=== PATIENT | female | born 1925 | race Caucasian/White ===

== ENCOUNTER 2016-12-03 15:51 | Inpatient (IN) ==
[2016-12-03] MEDS ORDERED: SODIUM CHLORIDE 0.9% 1,000 ML IV STA (16:09)
[2016-12-03] MEDS ORDERED: cefTRIAXone 2,000 MG in SODIUM CHLORIDE 0.9% 100 ML IV ONE (16:22)
--- NOTE | 2016-12-03 16:34 | EKG Report ---
Stationary ECG Study [facility] ER Test Date: 12/03/2016 4:32:22 PM Pat Name: BRITTNY PRIETO Department: Room: Gender: F Class B Driver: : [id number] Requested by: Frederick Caruso Order Number: [id number] Reading MD: JOSÉ MIG[address] Intervals [place] Rate: 117 P: 999 KS: 0 QRS: -1 QRSD: 87 T: -37 QT: 266 QTc: 335 Interpretive Statements Atrial fibrillation WITH RAPID VENTRICULAR RESPONSE Electronically Signed On 12-04-16 16:50:16 [address]T by [address] [id number]
[2016-12-03 16:42] LABS: Basophils # 0.1 10*3/uL (0.0-0.2); Basophils % 0.2 % (0.0-0.8); Hematocrit 32.5 VOL% (35.7-47.0); Hemoglobin 10.5 GM/DL (12.0-16.0); Immature Granulocytes % 1.9 %; Immature Granulocytes Absolute 0.71 #; Lymphocytes # 1.5 10*3/uL (1.4-4.0); Lymphocytes % 4.1 % (21.3-54.2); Mean Corpuscular HGB Conc 32.3 GM/DL (32-36); Mean Corpuscular Hemoglobin 29 PG (27-34); Mean Corpuscular Volume 90.3 FL (87-102); Mean Platelet Volume 11.9 FL (9.6-12.0); Monocytes # 0.6 10*3/uL (0.11-0.8); Monocytes % 1.5 % (1.7-12.7); NRBC # 0.02 10*3/uL; Neutrophils # 35.1 10*3/uL (1.4-7.4); Neutrophils % 92.3 % (38.7-73.9); Platelet Count 257 T/CUMM (130-400)
[2016-12-03] MEDS ORDERED: cefTRIAXone 1,000 MG VIAL ONE (16:48)
[2016-12-03 16:55] LABS: INR 1.5; PT Patient Result 16.3 SECS; Partial Thromboplastin Time 28.7 SECS (0-40)
[2016-12-03 17:03] LABS: Apearance,Urine CLOUDY (Clear); Bacteria,Urine Moderate /HPF (Few); Bilirubin,Urine Negative (Negative); Blood, Urine Moderate mg/dL (Negative); Glucose,Urine (UA) Negative (Negative); Ketones,Urine 5 mg/dL (Negative); Nitrite,Urine Negative (Negative); Protein,Urine >=500 MG/DL; RBC,Urine 1361 /HPF (0-4); Squamous Epithelial Cell,Urine Few /HPF (0-10); Urine Color Amber (Yellow); Urine Specific Gravity 1.013 (1.001-1.035); Urine Urobilinogen < 2.0 EU/DL (0.2-1.0); WBC,Urine 1106 /HPF (0-6)
[2016-12-03 17:09] LABS: Band Neutrophils 2 % (0-10); Hypersegmented Neutrophil 1+; Lymphocytes 1 % (20-55); Ovalocytes Slight; Platelet Estimate Adequate; Poikilocytosis Slight; Segmented Neutrophils 96 % (50-85); Total Cells Counted 100
--- NOTE | 2016-12-03 17:12 | XRay Report ---
History: Altered mental status Date: 12/03/2016 Study: Chest x-ray AP portable Comparison exam: October 29, 2016 There is stable mild cardiomegaly. The mediastinal contour is unchanged in this patient status post prior median sternotomy. There is moderate aortic arch calcification. The pulmonary vasculature is not engorged. The exam was performed in shallow breath. There is no gross pleural effusion. There is some minor subsegmental atelectasis in the right midlung. Lungs are otherwise generally clear without change. There are some scattered emphysematous changes. There is osteopenia. Impression: No gross evidence of acute cardiopulmonary process compared to the previous study PROCEDURE INTERPRETED AT [facility] DEPARTMENT OF RADIOLOGY Final Report Signed by: Dr. Brittney Valverde
[2016-12-03 17:15] LABS: Albumin 1.7 G/DL (3.4-5.0); Bilirubin,Total 0.6 MG/DL (0.2-1.0); Calcium 10.3 MG/DL (8.5-10.1); Total Protein 5.8 G/DL (6.4-8.3)
[2016-12-03 17:16] LABS: Osmolality,Calculated 330.9 MOS/KG (273-304); Potassium 4.1 MMOL/L (3.5-5.1)
[2016-12-03 17:20] LABS: Troponin I Only 0.254 NG/ML (0.00-0.045)
[2016-12-03] MEDS ORDERED: ONDANSETRON 4 MG/2 ML VIAL IV PRN (17:28)
[2016-12-03] MEDS ORDERED: NALOXONE 0.4 MG/ML VIAL IV PRN (17:28)
[2016-12-03] MEDS ORDERED: ACETAMINOPHEN 325 MG TABLET PO PRN (17:28)
--- NOTE | 2016-12-03 17:28 | Emergency Department Note ---
Archie English Brittany, am scribing for, and in the presence of, Wes Kuhn MD 16:11. Bam English Doug C, MD, personally performed the services described in this documentation, ascribed by Christy Almanza in my presence, and it is both accurate and complete 727 . Arrival - Arrival Chief Complaint: Altered Mental Status Stated Complaint: altered loc ED Nursing Triage Note: Brought in by EMS c/o altered LOC and fever-onset this morning. Family reports temp of 105 today. Mode of Arrival: Stretcher Limitations: Altered Mental Status Source: Family, Old Records Reviewed, RN Notes Reviewed Time Seen by Provider: 12/03/16 15:58 - History of Present Illness HPI Narrative: Patient's brought from home today by family with high fever, decreased responsiveness and elevated blood sugar. Patient is on hospice. She has a history of bladder cancer and is not a candidate for surgical or chemotherapeutic treatment. She is not having any dyspnea according to the family. I was called by the hospice nurse because of her hyperglycemia. Patient did not have any short acting insulin at home. Finally elected running to the emergency room. She is still a DNR. She is unable to give any history. Onset (ago): hour(s) Consistency: constant Date of Last Menstrual Period: hysterectomy Allergies/Adverse Reactions: Allergies Allergy/AdvReac Type Severity Reaction Status Date / Time Anesthetics - Amide Type Allergy Severe ANAPHYLAXIS Verified 10/29/16 10:16 Anesthetics - Nan Type- Allergy Severe ANAPHYLAXIS Verified 10/29/16 10:16 Parabens [Anesthetics - Ann Type] codeine Allergy Severe HIVES Verified 10/29/16 10:16 Iodinated Contrast Media - Allergy Intermediate Vomiting Verified 10/29/16 10:16 Oral and Home Medications: Home Medications Medication Instructions Recorded Confirmed Type Folic Acid Tab 1 mg PO DAILY 04/29/16 10/29/16 History Insulin Glargine,Hum.rec.anlog 25 unit SUBCUT BEDTIME 04/29/16 10/29/16 History [Lantus SoloStar] Losartan [Cozaar] 50 mg PO DAILY 04/29/16 10/29/16 History Magnesium 250 mg PO DAILY 04/29/16 10/29/16 History Multivitamin (Centrum) [Centrum 1 tablet PO DAILY 04/29/16 10/29/16 History Tab] amLODIPine [Norvasc] 5 mg PO DAILY 04/29/16 10/29/16 History sitaGLIPtin [Januvia] 100 mg PO DAILY 04/29/16 10/29/16 History Skin Healing Oint (Aquaphor) 1 applic TOP DAILY #1 ointment 05/05/16 10/29/16 Rx [Aquaphor] Carvedilol [Coreg] 6.25 mg PO BID #60 tablet 07/05/16 10/29/16 Rx Psyllium Powder [Hydrocil Powder] 1 packet PO DAILY pack 07/05/16 10/29/16 Rx Ascorbic Acid [Vitamin C] 500 mg PO DAILY 07/27/16 10/29/16 History Gabapentin Cap/Tab [Neurontin 200 mg PO BEDTIME #30 capsule 08/16/16 10/29/16 Rx Cap/Tab] HYDROcodone/ACETAMIN 5-325 [[place] 1 tablet PO Q6H PRN 10/29/16 10/29/16 History 5-325] Acetaminophen Tab [Tylenol Tab] 650 mg PO Q6H PRN #0 tablet 11/02/16 Rx Fondaparinux [Arixtra] 2.5 mg SUBCUT Q24H syringe 11/02/16 Rx Lactulose Liquid [Chronulac] 30 gm PO DAILY PRN #0 11/02/16 Rx Magnesium Hydroxide Susp [Milk of 30 ml PO Q6H PRN #0 11/02/16 Rx Magnesia] Zaleplon [Sonata] 5 mg PO BEDTIME capsule 11/02/16 Rx Review of System - Review of System ROS unobtainable: due to mental status - Review of System Constitutional: Present: fever Medical,Surgical,& Family Hx - Medical History Cardio: History of: CHF, CAD, Hypertension, [place], Cardiovascular Problems Neurology: History of: TIA HEENT: History of: Eye Problem (GLASSES), Dental Problems (UPPER & LOWER DENTURES) Endocrine: History of: Diabetes Mellitus (IDDM), Diabetes Mellitus (NIDDM) Rheumatology: History of;: Rheumatoid Arthritis Respiratory: History of: Pneumonia (Can't remember when but has as a adult.) Genitourinary: History of: Kidney Stones, Recurring Urinary Tract Infections, Genitourinary Cancer (Patient has a history of bladder cancer) Gastrointestinal: History of: Hemorrhoids Musculoskeletal: History of: Back/Neck Problems (Had 2 slipped discs in back1991.), Musculoskeletal Problems (Had 2 slipped discs in .) No history of: Amputation Hematology: History of: Anemia (Take vitamin with iron in it- per daughter.) Other: History of: Skin Problems (Chronic venous stasis disease with ulcers), Miscellaneous Medical Problems - Surgical History Cardiac Surgeries: Sugical HX of: Cardiac Catheterization (STENT X1 in 2011), Cardiac Surgery (Has had 4 CABGs. Last one was in 1997.) Thoracic Surgeries: Patient denies;: Kidney (Renal Surgery), Lithotripsy, Nephrectomy, Lobectomy Neurologic Surgeries: Patient denies: Neurologic Surgery HEENT Surgeries: Surgical HX of: Eye Surgery (CATARACTS REMOVED IN 1996) Patient denies: Thyroid Surgery, Tonsilectomy & Adenoidectomy Abdominal Surgeries: Surgical HX of: Colonoscopy Reproductive Surgeries: Surgical HX of;: Hysterectomy (In 1966) Patient denies;: Cystoscopy, Genitourinary Surgery Orthopedic Surgeries: Surgical HX of;: Orthopedic Surgery (Left Hip Fx- Jul 2016 ) Patient denies;: Implanted Devices, Spinal Surgery, Total Hip Replacement, Total Knee Replacement - Family History Family History: Reports;: Family Cancer (BROTHER X2 (COLON)), Family Diabetes ( Mother, Sister, Son), Family Heart Disease (father and brothers), Family Hypertension (Siblings), Family Stroke (Sister) - Social History Smoking Status: Never smoker Frequency of Alcohol Use: None Type of Drug Use: None Exam Vital Signs: Vital Signs Temperature 102 F H 12/03/16 16:02 Pulse Rate 128 H 12/03/16 16:02 Respiratory Rate 32 H 12/03/16 16:02 Blood Pressure 124/75 12/03/16 16:02 O2 Sat by Pulse Oximetry 99 12/03/16 16:02 - General General appearance: lethargic (patient is minimally responsive to stimuli), obtunded - Head Head exam: Present: atraumatic, normocephalic, normal inspection - Eye Eye exam: Present: normal appearance, PERRL, EOMI - ENT ENT exam: Present: normal exam, mucous membranes dry. Absent: normal oropharynx - Neck Neck exam: Present: normal inspection, full ROM - Chest Chest inspection: Present: normal inspection - Respiratory Respiratory exam: Present: rhonchi (scattered rhonchi to both lung hernandez upon auscultation). Absent: normal lung sounds bilaterally - Cardiovascular Cardiovascular exam: Present: tachycardia, irregular rhythm, normal heart sounds. Absent: regular rate, normal rhythm - Abdominal Exam Abdominal exam: Present: soft, normal bowel sounds, diminished bowel sounds. Absent: distention, tenderness - Extremities Exam Extremities exam: Present: normal inspection - Back Exam Back exam: Present: normal inspection - Neurological Exam Neurological exam: Present: CN II-XII intact (Grossly intact). Absent: alert ( patient is minimally responsive to stimuli ), oriented X3 (unable to assess secondary to patient being minimally responsive to stimuli) - Skin Skin exam: Present: warm (febrile), dry, intact, normal color Course Course Narrative: Family requested admission with hydration and IV antibiotics and I think it with the circumstances is a reasonable request. They still want to keep her a DNR. I will make her observation patient. Results - Labs CBC & BMP: 12/03/16 16:32 12/03/16 16:32 Lab Results: I have reviewed the patients labs Labs: Laboratory Tests 12/03/16 16:32 WBC 38.0 H RBC 3.60 L Hgb 10.5 L Hct 32.5 L MCV 90.3 MCH 29 MCHC 32.3 RDW 16.0 Plt Count 257 MPV 11.9 Neut % (Auto) 92.3 H Lymph % (Auto) 4.1 L Martin % (Auto) 1.5 L Eos % (Auto) 0.0 Baso % (Auto) 0.2 Neut # (Auto) 35.1 H Lymph # (Auto) 1.5 Martin # (Auto) 0.6 Eos # (Auto) 0.0 Baso # (Auto) 0.1 Immature Gran % 1.9 Nucleated RBC % 0.1 Immature Gran # 0.71 Nucleated RBCs # 0.02 Laboratory Tests 12/03/16 16:32 INR 1.5 PT Patient/Control Mix 16.3 D Circ Anticoag PTT 28.7 Laboratory Tests 12/03/16 16:48 Urine Color Vianey Urine Appearance Cloudy Urine pH 8.0 Ur Specific Mccloud 1.013 Urine Protein >=500 Urine Glucose (UA) Negative Urine Ketones 5 Urine Blood Moderate Urine Nitrate Negative Urine Bilirubin Negative Urine Urobilinogen < 2.0 H Urine Leukocytes Moderate H Urine RBC 1361 Urine WBC 1106 Urine WBC Clumps Many Ur Squamous Epith Cells Few Urine Bacteria Moderate Laboratory Tests 12/03/16 12/03/16 16:32 16:32 Total Counted 100 Segmented Neutrophils 96 H Band Neutrophils 2 Lymphocytes 1 L Monocytes 1 L Hypersegmented Neuts 1+ Platelet Estimate Adequate Poikilocytosis Slight Ovalocytes Slight ESR Westergren Pending C-Reactive Protein 5.92 H Laboratory Tests 12/03/16 12/03/16 16:32 16:32 Lactic Acid 3.8 H C-Reactive Protein 5.92 H Laboratory Tests 12/03/16 16:32 Lactic Acid 3.8 H Laboratory Tests 12/03/16 16:32 Sodium 151 H Potassium 4.1 Chloride 117 H Carbon Dioxide 21 Anion Gap 17.1 H BUN 70 H Creatinine 1.60 H GFR Calculation 24 BUN/Creatinine Ratio 43.00 H Glucose 305 H Calculated Osmolality 330.9 H Calcium 10.3 H Total Bilirubin 0.60 AST 40 H ALT 15 Alkaline Phosphatase 209 H Troponin I 0.254 H Total Protein 5.8 L Albumin 1.7 L Globulin 4.1 H Albumin/Globulin Ratio 0.4 L - EKG EKG results: interpreted by ERMD - Impressions Atrial flutter with heart rate 116 bpm - Diagnostic Findings Procedure: Chest x-ray: report reviewed by me (No gross evidence of acute cardiopulmonary process compared to the previous study.) Disposition Clinical Impression: Sepsis secondary to UTI Case discussed with: patient's family Disposition: Still a Patient Condition: Guarded Time of Disposition: 17:27
[2016-12-03 17:47] LABS: Sedimentation Rate-Westergren 86 MM/HR (0-30)
[2016-12-03] MEDS ORDERED: MORPHINE 2 MG/1 ML SYRINGE IV STA (18:08)
[2016-12-03] MEDS ORDERED: MORPHINE 2 MG/1 ML SYRINGE ONE (18:11)
[2016-12-03] MEDS: SODIUM CHLORIDE 0.9% 1,000 ML IV SCH (18:20)
[2016-12-03] MEDS: DOCUSATE SODIUM 100 MG CAPSULE PO SCH (22:58)
[2016-12-04] MEDS: MORPHINE 2 MG/1 ML SYRINGE IV PRN ×4 (01:31→21:21)
[2016-12-04] MEDS: SODIUM CHLORIDE 0.9% 1,000 ML IV SCH (02:25)
[2016-12-04 06:25] LABS: Basophils # 0.1 10*3/uL (0.0-0.2); Basophils % 0.2 % (0.0-0.8); Hematocrit 31.3 VOL% (35.7-47.0); Hemoglobin 9.8 GM/DL (12.0-16.0); Immature Granulocytes % 2.2 %; Lymphocytes # 2.5 10*3/uL (1.4-4.0); Lymphocytes % 6.2 % (21.3-54.2); Mean Corpuscular HGB Conc 31.3 GM/DL (32-36); Mean Corpuscular Hemoglobin 29 PG (27-34); Mean Corpuscular Volume 93.7 FL (87-102); Mean Platelet Volume 11.9 FL (9.6-12.0); Monocytes # 1.3 10*3/uL (0.11-0.8); Monocytes % 3.1 % (1.7-12.7); Neutrophils # 36.1 10*3/uL (1.4-7.4); Neutrophils % 88.3 % (38.7-73.9); Red Blood Count 3.34 MC/CUMM (3.8-5.5); Red Cell Distribution Width 16.5 % (9.3-17.3)
[2016-12-04 06:28] LABS: Platelet Count 190 T/CUMM (130-400); White Blood Count 40.9 T/CUMM (4-12)
[2016-12-04 06:50] LABS: Calcium 10.2 MG/DL (8.5-10.1); Osmolality,Calculated 341.3 MOS/KG (273-304); Potassium 3.6 MMOL/L (3.5-5.1)
[2016-12-04] MEDS ORDERED: DEXTROSE 50% 25 GM/50 ML VIAL IV PRN (07:33)
[2016-12-04] MEDS ORDERED: GLUCAGON 1 MG VIAL IM PRN (07:33)
--- NOTE | 2016-12-04 07:33 | Family Practice History&Phys ---
Assessment and Plan (1) Sepsis secondary to UTI Status: Acute Assessment and plan: 12/04/2016: Will add vancomycin to her present IV antibiotics. Her prognosis is grim. Current Visit: Yes History of Present Illness Chief complaint: Altered mental status History of present illness: Ms. Enriquez is a 89 year old female Patient is a 89-year-old white female brought the emergency room yesterday for with altered mental status and increased fever. Patient is on hospice for multiple medical issues including inoperable bladder cancer. Patient's temperature was 105 at home and family elected to bring her to the emergency room. She certainly appear dehydrated and has a urinary tract infection with marked leukocytosis on her CBC. I discussed the critical nature of her illness and family requested she be admitted for IV fluids and antibiotics. Patient does not appear to be uncomfortable at present. She apparently had a good night according to family members. Home Medications Medication Instructions Recorded Confirmed Type Folic Acid Tab 1 mg PO DAILY 04/29/16 12/03/16 History Insulin Glargine,Hum.rec.anlog 25 unit SUBCUT BEDTIME 04/29/16 12/03/16 History [Lantus SoloStar] Losartan [Cozaar] 50 mg PO DAILY 04/29/16 12/03/16 History Magnesium 250 mg PO DAILY 04/29/16 12/03/16 History Multivitamin (Centrum) [Centrum 1 tablet PO DAILY 04/29/16 12/03/16 History Tab] amLODIPine [Norvasc] 5 mg PO DAILY 04/29/16 12/03/16 History sitaGLIPtin [Januvia] 100 mg PO DAILY 04/29/16 12/03/16 History Psyllium Powder [Hydrocil Powder] 1 packet PO DAILY pack 07/05/16 12/03/16 Rx Ascorbic Acid [Vitamin C] 500 mg PO DAILY 07/27/16 12/03/16 History Gabapentin Cap/Tab [Neurontin 200 mg PO BEDTIME #30 capsule 08/16/16 12/03/16 Rx Cap/Tab] Acetaminophen Tab [Tylenol Tab] 650 mg PO Q6H PRN #0 tablet 11/02/16 12/03/16 Rx Magnesium Hydroxide Susp [Milk of 30 ml PO Q6H PRN #0 11/02/16 12/03/16 Rx Magnesia] Zaleplon [Sonata] 5 mg PO BEDTIME capsule 11/02/16 12/03/16 Rx Carvedilol [Coreg] 3.125 mg PO BID 12/03/16 12/03/16 History Hydrocodone/Acetaminophen [Yeso 1 each PO Q6H PRN 12/03/16 12/03/16 History 7.5-325 Tablet] Lactulose [Kristalose] 30 gm PO Q24H PRN 12/03/16 12/03/16 History Allergies Allergy/AdvReac Type Severity Reaction Status Date / Time Anesthetics - Amide Type Allergy Severe ANAPHYLAXIS Verified 10/29/16 10:16 Anesthetics - Ann Type- Allergy Severe ANAPHYLAXIS Verified 10/29/16 10:16 Parabens [Anesthetics - Ann Type] codeine Allergy Severe HIVES Verified 10/29/16 10:16 Iodinated Contrast Media - Allergy Intermediate Vomiting Verified 10/29/16 10:16 Oral and ROS unobtainable: due to mental status Medical,Surgical,& Family Hx - Medical History Cardio: History of: CHF, CAD, Hypertension, [place], Cardiovascular Problems Neurology: History of: TIA HEENT: History of: Eye Problem (GLASSES), Dental Problems (UPPER & LOWER DENTURES) Endocrine: History of: Diabetes Mellitus (IDDM), Diabetes Mellitus (NIDDM) Rheumatology: History of;: Rheumatoid Arthritis Respiratory: History of: Pneumonia (Can't remember when but has as a adult.) Genitourinary: History of: Kidney Stones, Recurring Urinary Tract Infections, Genitourinary Cancer (Patient has a history of bladder cancer) Gastrointestinal: History of: Hemorrhoids Musculoskeletal: History of: Back/Neck Problems (Had 2 slipped discs in back- 1991.), Musculoskeletal Problems (Had 2 slipped discs in back-1991.) No history of: Amputation Hematology: History of: Anemia (Take vitamin with iron in it- per daughter.) Other: History of: Cancer (bladder cancer), Skin Problems (Chronic venous stasis disease with ulcers), Miscellaneous Medical Problems - Surgical History Cardiac Surgeries: Sugical HX of: Cardiac Catheterization (STENT X1 in 2011), Cardiac Surgery (Has had 4 CABGs. Last one was in 1997.) Thoracic Surgeries: Patient denies;: Kidney (Renal Surgery), Lithotripsy, Nephrectomy, Lobectomy Neurologic Surgeries: Patient denies: Neurologic Surgery HEENT Surgeries: Surgical HX of: Eye Surgery (CATARACTS REMOVED IN 1996) Patient denies: Thyroid Surgery, Tonsilectomy & Adenoidectomy Abdominal Surgeries: Surgical HX of: Colonoscopy Reproductive Surgeries: Surgical HX of;: Hysterectomy (In 1966) Patient denies;: Cystoscopy, Genitourinary Surgery Orthopedic Surgeries: Surgical HX of;: Orthopedic Surgery (Left Hip Fx- Jul 2016 ) Patient denies;: Implanted Devices, Spinal Surgery, Total Hip Replacement, Total Knee Replacement - Family History Family History: Reports;: Family Cancer (BROTHER X2 (COLON)), Family Diabetes ( Mother, Sister, Son), Family Heart Disease (father and brothers), Family Hypertension (Siblings), Family Stroke (Sister) - Social History Smoking Status: Never smoker Frequency of Alcohol Use: None Type of Drug Use: None Exam - Constitutional Vitals: Period Temp Pulse Resp BP Sys/Ramirez Pulse Ox Last 24 Hr 97.7 F-102 F 71-128 18-32 109-136/50-75 95-100 Exam: General: Objective patient is a well-developed white female who has no verbal response and does not follow commands. This is unchanged from yesterday HEENT: Pupils equal and reactive to light. Patent nares and airway Neck: No meningismus, adenopathy, thyromegaly. There are no auscultated carotid bruits. Cardiovascular: Patient has rapid irregular rhythm with 3/6 systolic Murmur left base Chest: Clear to auscultation without rales rhonchi wheezes. Abdomen: Soft nontender to palpation No masses, rebound, guarding or tenderness. Neuro: Patient is somnolent and responds to painful stimuli only. Dermatologic: No evidence of abnormal lesions or masses. Musculoskeletal: There is no joint swelling or tenderness or deformity. Results - Labs CBC & BMP: 12/04/16 06:12 12/04/16 06:12 Lab Results: I have reviewed the past 24 hour labs
[2016-12-04 07:38] LABS: Band Neutrophils 2 % (0-10); Hypochromasia 1+; Lymphocytes 3 % (20-55); Segmented Neutrophils 94 % (50-85); Total Cells Counted 100
[2016-12-04 07:39] LABS: Microcytosis 1+; Ovalocytes Slight
[2016-12-04] MEDS ORDERED: VANCOMYCIN INJ 750 MG in SODIUM CHLORIDE 0.9% 250 ML IV PRN (08:03)
[2016-12-04] MEDS: ACETAMINOPHEN 650 MG SUPP RECTAL PRN (08:10)
[2016-12-04] MEDS: SODIUM CHLORIDE 0.45% 1,000 ML IV SCH ×2 (08:11→18:12)
[2016-12-04] MEDS: DOCUSATE SODIUM 100 MG CAPSULE PO SCH ×2 (08:57→23:57)
[2016-12-04] MEDS ORDERED: VANCOMYCIN INJ 1,250 MG in SODIUM CHLORIDE 0.9% 250 ML IV ONE (09:00)
[2016-12-04] MEDS: PANTOPRAZOLE 40 MG TABLET PO SCH (10:40)
[2016-12-04] MEDS: INSULIN LISPRO 100 UNIT/ML SUBCUT SCH ×2 (12:34→18:13)
[2016-12-04] MEDS: cefTRIAXone 1,000 MG in SODIUM CHLORIDE 0.9% 100 ML IV SCH (21:19)
[2016-12-04] MEDS: DESITIN 4OZ/NYSTATIN 15 GRAM MIXTURE PASTE TOP SCH (22:00)
[2016-12-05] MEDS: SODIUM CHLORIDE 0.45% 1,000 ML IV SCH ×4 (01:00→22:26)
[2016-12-05] MEDS: MORPHINE 2 MG/1 ML SYRINGE IV PRN ×4 (03:36→19:40)
[2016-12-05] MEDS: INSULIN LISPRO 100 UNIT/ML SUBCUT SCH ×3 (04:49→19:10)
--- NOTE | 2016-12-05 08:20 | Family Practice Progress Note ---
Family Practice - PN: Subj Interval history: Patient is a little bit more alert this morning she has been. Patient certainly not talking this morning. I note that her blood and urine cultures were both negative which is little surprising to me. We will continue present antibiotic therapy and IV fluids. Exam (Progress Note) - Constitutional Vitals: Period Temp Pulse Resp BP Sys/Ramirez Pulse Ox Last 24 Hr 97.9 F-99.9 F 81-87 18-20 112-132/42-73 99-100 Exam: Objective a well-developed white female who responds to painful stimuli only. Cardiovascular: Heart rates regular with 3/6 systolic ejection murmur left base. Respiratory: Patient has scattered rhonchi bilaterally Abdomen: Abdomen soft and nontender to palpation. Results - Labs CBC & BMP: 12/04/16 06:12 12/04/16 06:12 Lab Results: I have reviewed the past 24 hour labs Assessment and Plan (1) Sepsis secondary to UTI Status: Acute Assessment and plan: 12/04/2016: Will add vancomycin to her present IV antibiotics. Her prognosis is grim. 12/05/2016: Patient slightly improved with IV fluids. We will keep her in another day and probably to go back home with hospice tomorrow Current Visit: Yes
[2016-12-05] MEDS: DOCUSATE SODIUM 100 MG CAPSULE PO SCH ×2 (11:58→21:07)
[2016-12-05] MEDS: PANTOPRAZOLE 40 MG TABLET PO SCH (11:58)
[2016-12-05] MEDS: DESITIN 4OZ/NYSTATIN 15 GRAM MIXTURE PASTE TOP SCH ×2 (12:20→22:26)
[2016-12-05] MEDS ORDERED: VANCOMYCIN INJ 750 MG in SODIUM CHLORIDE 0.9% 250 ML IV ONE (16:00)
[2016-12-05] MEDS ORDERED: THIAMINE INJ 100 MG, FOLIC ACID INJ 1 MG, MULTIVITAMIN INJ 10 ML in SODIUM CHLORIDE 0.4... IV SCH (21:00)
[2016-12-05] MEDS: cefTRIAXone 1,000 MG in SODIUM CHLORIDE 0.9% 100 ML IV SCH (21:09)
[2016-12-06] MEDS: INSULIN LISPRO 100 UNIT/ML SUBCUT SCH ×4 (03:03→18:24)
[2016-12-06] MEDS: MORPHINE 2 MG/1 ML SYRINGE IV PRN ×5 (03:27→22:32)
[2016-12-06] MEDS: ACETAMINOPHEN 650 MG SUPP RECTAL PRN (06:29)
[2016-12-06 06:41] LABS: Calcium 9.2 MG/DL (8.5-10.1); Osmolality,Calculated 325.4 MOS/KG (273-304)
--- NOTE | 2016-12-06 07:46 | Family Practice Progress Note ---
Family Practice - PN: Subj Interval history: Patient is little changed from yesterday. Family noticed that she is coughing a little bit now. She has probably had enough IV fluids and I will reduce her IV fluid rate. The family is dealing with the idea of having a feeding tube inserted. I told him if anything this may prolong her misery but it is certainly up to them to make that decision. Mrs. Enriquez is obviously not able to provide any input. Exam (Progress Note) - Constitutional Vitals: Period Temp Pulse Resp BP Sys/Ramirez Pulse Ox Last 24 Hr 98.1 F-100.5 F 59-94 18-24 100-131/50-73 94-100 Exam: Objective a well-developed white female who responds to painful stimuli only. She only grimaces. Cardiovascular: Heart rates regular with 3/6 systolic ejection murmur left base. Respiratory: Patient has scattered rhonchi bilaterally Abdomen: Abdomen soft and nontender to palpation. Results - Labs CBC & BMP: 12/04/16 06:12 12/06/16 05:25 Lab Results: I have reviewed the past 24 hour labs Assessment and Plan (1) Sepsis secondary to UTI Status: Acute Assessment and plan: 12/04/2016: Will add vancomycin to her present IV antibiotics. Her prognosis is grim. 12/05/2016: Patient slightly improved with IV fluids. We will keep her in another day and probably to go back home with hospice tomorrow 12/06/2016: Family now is trying to decide whether or not they want her to have a feeding tube. Current Visit: Yes
--- NOTE | 2016-12-06 11:00 | Physician Query Form ---
CLICK EDIT DOCUMENT TO SELECT QUERY ANSWER --> OK --> SIGN Brandie Russell RN Clinical Grain[employer] Machine W) [phone] (f) [phone] [email or web address] PROVIDERS: Make your selection(s) from the choices in EACH section by typing an "x" and enter comments in the comment section. Please use your independent medical judgment in providing your response. This request does not imply that any particular answer is desired or expected. CLINICAL INDICATORS: (Providers should not edit this section) Based on documentation of "Acute sepsis secondary to UTI" "has no verbal response and does not follow commands" "lethargic pt is minimally responsive to stimuli" "responds to painful stimuli only. she grimaces" "little bit more alert this morning" Treated with NS bolus and 1/2NS infusion, IV Rocephin, and IV Vancomycin. ACUITY: (x ) Acute ( ) Acute on Chronic ( ) Chronic ( ) Clinically unable to determine NATURE: (x ) Delirium due to general medical condition ( ) Dementia (x ) Encephalopathy ( ) Unconscious ( ) Transient level of awareness ( ) Comatose ( ) Locked-in State ( ) Persistent Vegetative State ( ) Other, please specify: ( ) Clinically unable to determine Please indicate the underlying cause of the altered mental status (CHECK ALL THAT APPLY): (x ) Baseline dementia ( ) Alzheimer's disease ( ) Parkinson's disease ( ) Lewy body dementia ( ) Acute stroke ( ) Late effect of stroke ( ) Reactive (from emotional stress, psychological trauma) ( ) Due to narcotics/other drugs ( ) Post procedural delirium ( ) Transient ischemic attack ( ) Generalized cerebral edema ( ) Normal pressure hydrocephalus ( ) Psychiatric illness ( ) Other, please specify: ( ) Clinically unable to determine Please indicate if there is an infection, sepsis, dehydration or specific organ failure that is causing the dementia. Be specific with clarifying the relationship between that process and the mental status change. COMMENTS: PLEASE ALSO DOCUMENT RESPONSE IN PROGRESS NOTES AND/OR DISCHARGE SUMMARY Use of terms such as suspected, likely, or probable (associated with a specific diagnosis that is being evaluated, monitored, or treated as if it exists) are acceptable and can be restated in the discharge summary if not ruled out. MTDD
--- NOTE | 2016-12-06 11:04 | Physician Query Form ---
CLICK EDIT DOCUMENT TO SELECT QUERY ANSWER --> OK --> SIGN Brandie Russell RN Clinical Enrollment Eligibility Representative W) [phone] (f) [phone] [email or web address] PROVIDERS: Make your selection(s) from the choices in EACH section by typing an "x" and enter comments in the comment section. Please use your independent medical judgment in providing your response. This request does not imply that any particular answer is desired or expected. CLINICAL INDICATORS: (Providers should not edit this section) Based on documentation of Creatinine from 1.6 to 0.7. GFR from 24 to 64. Treated with NS bolus followed by infusion. Monitored with serial lab checks. Clarify which of the following most accurately represents the patient's renal status: (x ) Acute kidney injury (non-traumatic) ( ) Acute renal failure ( ) Acute renal failure with underlying Chronic Kidney Disease (CKD) - please provide stage below ( ) Acute renal failure with pathological renal lesion ( ) Acute renal failure with necrosis ( ) tubular ( ) medullary ( ) cortical ( ) CKD - please provide stage below ( ) End Stage Renal Disease ( ) Acute interstitial nephritis ( ) Hepatorenal syndrome ( ) Other, please specify: ( ) Clinically unable to determine Chronic Kidney Disease Stages Source: National Kidney Disease Foundation ( ) Stage I (eGFR > or = 90) ( ) Stage II (eGFR 60 - 89) (x ) Stage III (eGFR 30 - 59) ( ) Stage IV (eGFR 15 - 29) ( ) Stage V (eGFR < 15 or dialysis) COMMENTS: PLEASE ALSO DOCUMENT RESPONSE IN PROGRESS NOTES AND/OR DISCHARGE SUMMARY Use of terms such as suspected, likely, or probable (associated with a specific diagnosis that is being evaluated, monitored, or treated as if it exists) are acceptable and can be restated in the discharge summary if not ruled out. MTDD
[2016-12-06] MEDS: DOCUSATE SODIUM 100 MG CAPSULE PO SCH (13:32)
[2016-12-06] MEDS: DESITIN 4OZ/NYSTATIN 15 GRAM MIXTURE PASTE TOP SCH (13:34)
[2016-12-06] MEDS: PANTOPRAZOLE 40 MG TABLET PO SCH (13:34)
[2016-12-06] MEDS: SODIUM CHLORIDE 0.9% 1,000 ML IV SCH (18:22)
[2016-12-06] MEDS: [UNRECOGNIZED DRUG - OTHER] IV SCH ×3 (18:26→23:43)
[2016-12-06] MEDS: MULTIVITAMIN IV SCH ×3 (18:26→23:43)
[2016-12-06] MEDS: THIAMINE IV SCH ×3 (18:26→23:43)
[2016-12-06] MEDS: cefTRIAXone 1,000 MG in SODIUM CHLORIDE 0.9% 100 ML IV SCH (22:38)
[2016-12-06] MEDS: VANCOMYCIN INJ 750 MG in SODIUM CHLORIDE 0.9% 250 ML IV SCH (23:30)
[2016-12-07] MEDS: ACETAMINOPHEN 650 MG SUPP RECTAL PRN ×4 (01:17→22:30)
[2016-12-07] MEDS: DESITIN 4OZ/NYSTATIN 15 GRAM MIXTURE PASTE TOP SCH ×3 (01:18→22:03)
[2016-12-07] MEDS: DOCUSATE SODIUM 100 MG CAPSULE PO SCH ×3 (01:18→20:30)
[2016-12-07] MEDS: INSULIN LISPRO 100 UNIT/ML SUBCUT SCH ×5 (01:19→20:30)
--- NOTE | 2016-12-07 07:33 | Family Practice Progress Note ---
Family Practice - PN: Subj Interval history: Patient had a fitful night last night. Her urine cultures positive for enterococcus which was sensitive to penicillin and vancomycin. She is presently on ceftriaxone and vancomycin I will continue those. Family decided against a feeding tube and they understand that she is terminal. I told him the need to consider taking her back home with hospice which apparently was her wish. They will discuss this amongst themselves. Exam (Progress Note) - Constitutional Vitals: Period Temp Pulse Resp BP Sys/Ramirez Pulse Ox Last 24 Hr 99.5 F-102.8 F 98-108 16-22 126-152/54-86 90-97 Exam: Objective a well-developed white female who has no response to painful or verbal stimuli. Cardiovascular: Heart rates regular with 3/6 systolic ejection murmur left base. Respiratory: Patient has scattered rhonchi bilaterally Abdomen: Abdomen soft and nontender to palpation. Results - Labs CBC & BMP: 12/04/16 06:12 12/06/16 05:25 Lab Results: I have reviewed the past 24 hour labs Assessment and Plan (1) Sepsis secondary to UTI Status: Acute Assessment and plan: 12/04/2016: Will add vancomycin to her present IV antibiotics. Her prognosis is grim. 12/05/2016: Patient slightly improved with IV fluids. We will keep her in another day and probably to go back home with hospice tomorrow 12/06/2016: Family now is trying to decide whether or not they want her to have a feeding tube. 12/07/2016: Patient has enterococcus UTI. The family has decided against tube feedings and they understand that she is terminal. Current Visit: Yes
[2016-12-07] MEDS: PANTOPRAZOLE 40 MG TABLET PO SCH (10:15)
[2016-12-07] MEDS: [UNRECOGNIZED DRUG - OTHER] IV SCH ×2 (10:16→23:21)
[2016-12-07] MEDS: THIAMINE IV SCH ×2 (10:16→23:21)
[2016-12-07] MEDS: MULTIVITAMIN IV SCH ×2 (10:16→23:21)
[2016-12-07] MEDS: cefTRIAXone 1,000 MG in SODIUM CHLORIDE 0.9% 100 ML IV SCH (20:37)
[2016-12-07] MEDS: MORPHINE 2 MG/1 ML SYRINGE IV PRN (20:37)
[2016-12-07] MEDS: VANCOMYCIN INJ 750 MG in SODIUM CHLORIDE 0.9% 250 ML IV SCH (22:04)
[2016-12-08] MEDS: INSULIN LISPRO 100 UNIT/ML SUBCUT SCH ×4 (01:20→17:14)
[2016-12-08] MEDS: MORPHINE 2 MG/1 ML SYRINGE IV PRN (01:21)
[2016-12-08] MEDS: ACETAMINOPHEN 650 MG SUPP RECTAL PRN ×2 (01:31→05:12)
--- NOTE | 2016-12-08 07:16 | Family Practice Progress Note ---
Family Practice - PN: Subj Interval history: Patient had a decent night according to family. They do not want her to go home with hospice at this point. She continues to be unresponsive. I do not think she can survive much longer in her present state. Exam (Progress Note) - Constitutional Vitals: Period Temp Pulse Resp BP Sys/Ramirez Pulse Ox Last 24 Hr 96.8 F-102.5 F 83-111 18-25 126-145/49-67 95-98 Exam: Objective a well-developed white female who has no response to painful or verbal stimuli. Cardiovascular: Heart rates regular with 3/6 systolic ejection murmur left base. Respiratory: Patient has scattered rhonchi bilaterally Abdomen: Abdomen soft and nontender to palpation. Results - Labs CBC & BMP: 12/04/16 06:12 12/06/16 05:25 Lab Results: I have reviewed the past 24 hour labs Assessment and Plan (1) Sepsis secondary to UTI Status: Acute Assessment and plan: 12/04/2016: Will add vancomycin to her present IV antibiotics. Her prognosis is grim. 12/05/2016: Patient slightly improved with IV fluids. We will keep her in another day and probably to go back home with hospice tomorrow 12/06/2016: Family now is trying to decide whether or not they want her to have a feeding tube. 12/07/2016: Patient has enterococcus UTI. The family has decided against tube feedings and they understand that she is terminal. 12/08/2016: Patient continues to wither, I do not think she will survive much longer. Current Visit: Yes
[2016-12-08] MEDS: MULTIVITAMIN IV SCH ×4 (07:19→22:17)
[2016-12-08] MEDS: [UNRECOGNIZED DRUG - OTHER] IV SCH ×4 (07:19→22:17)
[2016-12-08] MEDS: THIAMINE IV SCH ×4 (07:19→22:17)
[2016-12-08] MEDS: SODIUM CHLORIDE 0.45% 1,000 ML IV SCH (07:21)
[2016-12-08] MEDS: DOCUSATE SODIUM 100 MG CAPSULE PO SCH ×2 (08:09→20:47)
[2016-12-08] MEDS: DESITIN 4OZ/NYSTATIN 15 GRAM MIXTURE PASTE TOP SCH ×2 (08:09→20:47)
[2016-12-08] MEDS: PANTOPRAZOLE 40 MG TABLET PO SCH (08:09)
[2016-12-08] MEDS: cefTRIAXone 1,000 MG in SODIUM CHLORIDE 0.9% 100 ML IV SCH (20:47)
[2016-12-08] MEDS: VANCOMYCIN INJ 750 MG in SODIUM CHLORIDE 0.9% 250 ML IV SCH (21:35)
[2016-12-09] MEDS: INSULIN LISPRO 100 UNIT/ML SUBCUT SCH ×4 (00:56→19:03)
[2016-12-09] MEDS: ACETAMINOPHEN 650 MG SUPP RECTAL PRN ×3 (00:57→17:09)
--- NOTE | 2016-12-09 05:15 | Family Practice Progress Note ---
Family Practice - PN: Subj Interval history: Patient had an uneventful night according to her daughter. She still not responding to them or myself. She still running some fever. The family wants comfort measures only at this time and I certainly agreeable to that. Exam (Progress Note) - Constitutional Vitals: Period Temp Pulse Resp BP Sys/Ramirez Pulse Ox Last 24 Hr 97.3 F-101.4 F 63-98 18-22 104-134/40-68 95-98 Exam: Objective a well-developed white female who has no response to painful or verbal stimuli. Cardiovascular: Heart rates regular with 3/6 systolic ejection murmur left base. Respiratory: Patient has scattered rhonchi bilaterally Abdomen: Abdomen soft and nontender to palpation. Results - Labs CBC & BMP: 12/04/16 06:12 12/06/16 05:25 Assessment and Plan (1) Sepsis secondary to UTI Status: Acute Assessment and plan: 12/04/2016: Will add vancomycin to her present IV antibiotics. Her prognosis is grim. 12/05/2016: Patient slightly improved with IV fluids. We will keep her in another day and probably to go back home with hospice tomorrow 12/06/2016: Family now is trying to decide whether or not they want her to have a feeding tube. 12/07/2016: Patient has enterococcus UTI. The family has decided against tube feedings and they understand that she is terminal. 12/08/2016: Patient continues to wither, I do not think she will survive much longer. 12/09/2016: Patient continues to weaken. I do not think she will make it through the weekend. Current Visit: Yes
[2016-12-09 06:36] LABS: Calcium 9.1 MG/DL (8.5-10.1)
[2016-12-09 06:45] LABS: Potassium 2.3 MMOL/L (3.5-5.1)
[2016-12-09] MEDS: THIAMINE IV SCH (08:58)
[2016-12-09] MEDS: [UNRECOGNIZED DRUG - OTHER] IV SCH (08:58)
[2016-12-09] MEDS: PANTOPRAZOLE 40 MG TABLET PO SCH (08:58)
[2016-12-09] MEDS: DOCUSATE SODIUM 100 MG CAPSULE PO SCH ×2 (08:58→21:18)
[2016-12-09] MEDS: MULTIVITAMIN IV SCH (08:58)
[2016-12-09] MEDS: DESITIN 4OZ/NYSTATIN 15 GRAM MIXTURE PASTE TOP SCH ×2 (08:59→20:32)
[2016-12-09] MEDS: SODIUM CHLOR 0.45% KCL 20 MEQ 20 MEQ/1,000 ML BAG IV SCH ×3 (11:45→23:20)
[2016-12-09] MEDS: THIAMINE INJ 100 MG, FOLIC ACID INJ 1 MG, MULTIVITAMIN INJ 10 ML in SODIUM CHLORIDE 0.4... IV SCH ×2 (20:21→22:00)
[2016-12-09] MEDS: cefTRIAXone 1,000 MG in SODIUM CHLORIDE 0.9% 100 ML IV SCH (20:26)
[2016-12-09] MEDS: VANCOMYCIN INJ 750 MG in SODIUM CHLORIDE 0.9% 250 ML IV SCH (21:21)
[2016-12-10] MEDS: INSULIN LISPRO 100 UNIT/ML SUBCUT SCH ×4 (03:51→18:01)
[2016-12-10] MEDS: SODIUM CHLOR 0.45% KCL 20 MEQ 20 MEQ/1,000 ML BAG IV SCH ×4 (06:24→20:17)
[2016-12-10] MEDS: DESITIN 4OZ/NYSTATIN 15 GRAM MIXTURE PASTE TOP SCH ×2 (10:05→22:05)
[2016-12-10] MEDS: PANTOPRAZOLE 40 MG TABLET PO SCH (10:05)
[2016-12-10] MEDS: DOCUSATE SODIUM 100 MG CAPSULE PO SCH ×2 (10:05→21:28)
--- NOTE | 2016-12-10 10:44 | Internal Med Progress Note ---
Assessment and Plan (1) Sepsis secondary to UTI Status: Acute Assessment and plan: 89-year-old female * Sepsis secondary to UTI. She is on antibiotics. Low-grade fever * Family understands that she is terminal. * Comfort measures Current Visit: Yes (2) HTN (hypertension) Status: Acute Current Visit: No (3) CAD (coronary artery disease) of artery bypass graft Status: Chronic Current Visit: No Qualifiers: [place] vs. transplanted heart: [place] heart Associated angina: without angina Qualified Code(s): I25.810 - Atherosclerosis of coronary artery bypass graft(s) without angina pectoris (4) Type 2 diabetes mellitus Status: Chronic Current Visit: No Qualifiers: Diabetes mellitus complication status: with neurologic complications Diabetes mellitus complication detail: with polyneuropathy Diabetes mellitus termite technician insulin use: without nursing home use Qualified Code(s): E11.42 - Type 2 diabetes mellitus with diabetic polyneuropathy Internal Medicine - PN: Subj Interval history: Patient's chart reviewed. She is unresponsive. Her daughter is present at bedside. Exam (Progress Note) - Constitutional Vitals: Period Temp Pulse Resp BP Sys/Ramirez Pulse Ox Last 24 Hr 99.0 F-101.5 F 89-102 16-24 94-157/42-68 87-96 Exam: Examination: GENERAL: Patient is unresponsive to painful or verbal stimuli HEENT: Mucous membranes are dry CVS: Regular rate and rhythm. S1 and S2 are normal. Systolic ejection murmur at left lower sternal RESPIRATORY: Bilateral rhonchi and few rales ABDOMEN: Soft and nontender. EXT: No edema. Peripheral pulses are present. INFORMAL WAITER/WAITRESS: Unresponsive Results - Labs CBC & BMP: 12/04/16 06:12 12/09/16 05:35 Lab Results: I have reviewed the past 24 hour labs
[2016-12-10] MEDS: cefTRIAXone 1,000 MG in SODIUM CHLORIDE 0.9% 100 ML IV SCH (22:03)
[2016-12-10] MEDS: VANCOMYCIN INJ 750 MG in SODIUM CHLORIDE 0.9% 250 ML IV SCH (23:31)
[2016-12-10] MEDS: THIAMINE INJ 100 MG, FOLIC ACID INJ 1 MG, MULTIVITAMIN INJ 10 ML in SODIUM CHLORIDE 0.4... IV SCH (23:35)
[2016-12-11] MEDS: ACETAMINOPHEN 650 MG SUPP RECTAL PRN (01:11)
[2016-12-11] MEDS: INSULIN LISPRO 100 UNIT/ML SUBCUT SCH (01:11)
[2016-12-11 03:28] VITALS: BP 70/32
--- NOTE | 2017-02-21 07:55 | Discharge Summary ---
DATE OF ADMISSION: 12/04/2016 DATE OF DISCHARGE: 12/10/2016 SUMMARY DISCHARGE DIAGNOSES: 1. ACUTE URINARY TRACT INFECTION WITH PROBABLE SEPSIS. 2. HISTORY OF INOPERABLE BLADDER CANCER. 3. SEVERE DEHYDRATION. 4. MULTIPLE MEDICAL PROBLEMS INCLUDING RHEUMATOID ARTHRITIS. HOSPITAL COURSE: The patient was an 89-year-old white female, presented to the emergency room on the day of admission with increased fever and altered mental status. Family states she has had a 105 temperature at home and they felt like she may be suffering and they brought her to the emergency room. The patient was found to be dehydrated and was found to have urinary tract infection and marked leukocytosis with a white blood count of over 40,000. Family requested IV fluids and antibiotics. They understood critical nature of her illness. The patient was admitted to my services. Blood cultures obtained, which remained negative, did have Enterococcus fecalis on her urine culture. It was sensitive to IV vancomycin, which was begun. Family realized that she was unable to take in any appreciable amount of nutrition and I offered feeding tube , but they declined this and elected to allow her to succumb to her illness. The patient continued to weaken and she succumbed to her illness. CC: EMERALD
== END 2016-12-11 01:32 | disposition expired | DRG 871 ==
LOC: EDUNIT# → EDBD → N.ED 15:51 → N.EDINP 15:51 → N.2E 19:13
PROVIDERS: ADMIT Family Medicine; ATTEND Family Medicine